=== PATIENT | female | born 1960 | race Caucasian/White ===

== ENCOUNTER 2017-04-26 14:30 | Emergency (ER) | payer OTHER ==
[~2017-04-26] VITALS: Ht 162.6 cm; Wt 80.0 kg
[2017-04-26 14:44] VITALS: BP 162/84; PULSE 106; RESP 20; TEMP 98.3; O2SAT 96
[2017-04-26 14:50] VITALS: BP 162/84; PULSE 104; RESP 20; O2SAT 96
[2017-04-26] MEDS ORDERED: ASPI81CH CHEW (14:56)
[2017-04-26] MEDS ORDERED: CENTCHW4 CHEW (14:56)
--- NOTE | 2017-04-26 15:09 | PD ---
HPI Chief Complaint: Chest Pain Time Seen by Provider: 14:58 Travel History International Travel<30 days: No Contact w/Intl Traveler<30days: No Traveled to known affect area: No History of Present Illness HPI 56-year-old female came to the emergency room with history of sudden onset chest pain that was a tight sensation across her chest. It radiated up to her jaw. Patient was having difficult time breathing because of it. This happened 45 minutes prior to coming in. She was given nitroglycerin spray by paramedics. She says the pain has subsided at this point. Patient had similar kind of feeling. Same thig happened a few years ago and at that time she had to be admitted to [facility]. She had something similar 2 weeks ago as well but didn't come in to be checked out. Patient had a stress test more than 10 years ago which was negative. She is a heavy smoker for past 40 years. No family history of coronary artery disease that she knows of. She took 2 full strength aspirin which she takes every other day anyway. Vital signs are within normal limit. [facility] Past Medical History Narrative Medical List of her past medical, surgical, social and family history was reviewed from the nursing note. Heart Rhythm Problems: No Cardiovascular Problems: Yes High Cholesterol: Yes (DID NOT GET RX FILLED) Congestive Heart Failure: No COPD: Yes (SMOKER) Diabetes: No Diminished Hearing: Yes ([place]) GERD: Yes (POSSIBLY) Genitourinary: No Hiatal Hernia: Yes Hypertension: No Musculoskeletal: Yes (PLEURACY) Neurologic: No Reproductive: No Respiratory: No Immunizations Current: No Myocardial Infarction: No Tetanus Vaccination: Unknown Influenza Vaccination: Yes ?: Not Menopausal: Yes Past Surgical History Abdominal Surgery: Yes (HERNIA REPAIR) Coronary Artery Bypass Graft: No Other Surgery: Yes (HERNIA) Social History Alcohol Use: Yes (OCCASIONALLY ) Tobacco Use: Yes (1PPD) Substance Use: No Allergies-Medications (Allergen,Severity, Reaction): Coded Allergies: No Known Allergies (Verified , 04/26/17) Comments No known drug allergies per Reported Meds & Prescriptions Reported Meds & Active Scripts Active Reported Centrum (Multiple Vitamins W/ Minerals) 1 Chew 1 Tab CHEW DAILY Aspirin 81 Mg Chew 162 Mg CHEW DAILY Narrative Medication List of her home medications reviewed from the nursing note. Review of Systems Except as stated in HPI: all other systems reviewed are Neg Physical Exam Narrative GENERAL: Awake, alert, obese, anxious SKIN: Focused skin assessment warm/dry. HEAD: Atraumatic. Normocephalic. EYES: Pupils equal and round. No scleral icterus. No injection or drainage. ENT: No nasal bleeding or discharge. Mucous membranes pink and moist. NECK: Trachea midline. No JVD. CARDIOVASCULAR: Regular rate and rhythm. No murmur appreciated. RESPIRATORY: No accessory muscle use. Clear to auscultation. Breath sounds equal bilaterally. GASTROINTESTINAL: Abdomen soft, non-tender, nondistended. Hepatic and splenic margins not palpable. MUSCULOSKELETAL: No obvious deformities. No clubbing. No cyanosis. No edema. NEUROLOGICAL: Awake and alert. No obvious cranial nerve deficits. Motor grossly within normal limits. Normal speech. PSYCHIATRIC: Appropriate mood and affect; insight and judgment normal. Data Data Last Documented VS Orders Electrocardiogram (04/26/17 15:25) Basic Metabolic Panel (Bmp) (04/26/17 15:25) Ckmb (Isoenzyme) Profile (04/26/17 15:25) Complete Blood Count With Diff (04/26/17 15:25) Magnesium (Mg) (04/26/17 15:25) Prothrombin Time / Inr (Pt) (04/26/17 15:25) Act Partial Throm Time (Ptt) (04/26/17 15:25) Troponin I (04/26/17 15:25) Chest, Single Ap (04/26/17 15:25) Ecg Monitoring (04/26/17 15:25) Bilateral Bp Monitoring (04/26/17 15:25) Iv Access Insert/Monitor (04/26/17 15:25) Oximetry (04/26/17 15:25) Oxygen Administration (04/26/17 15:25) Sodium Chloride 0.9% Flush (Ns Flush) (04/26/17 15:30) CKMB (04/26/17 15:00) CKMB% (04/26/17 15:00) Labs MDM Medical Decision Making Medical Screen Exam Complete: Yes Emergency Medical Condition: Yes Medical Record Reviewed: Yes Interpretation(s) Twelve-lead EKG was reviewed by me. Normal sinus rhythm, normal axis, nonspecific ST-T wave changes. Heart rate of 97 bpm. Differential Diagnosis ACS, non-STEMI, nonspecific chest pain Narrative Course 4:48 PM awaiting for the chemistry and troponin. Chest x-rays within normal limit. Given her risk factor which includes age, obesity and heavy smoking for many years I would like her to be ruled out and chest pain center. I've expressed this to the patient. 5:29 PM all the blood test results of back and within normal limit. However when I explained to the patient the need to be admitted patient didn't want to stay. She understands the risk of leaving. Patient has capacity to make decisions for herself. Patient will sign AMA. Procedures EKG Prior to Arrival: Yes Diagnosis Primary Impression: Chest pain Qualified Code: R07.9 - Chest pain, unspecified type Disposition: AGAINST MEDICAL ADVICE Condition: Serious Norma Taveras MD Apr 26, 2017 15:09 Mean Platelet Volume 7.9 FL Neutrophils (%) (Auto) 61.7 % Lymphocytes (%) (Auto) 27.9 % Monocytes (%) (Auto) 8.5 % Eosinophils (%) (Auto) 1.3 % Basophils (%) (Auto) 0.6 % Neutrophils # (Auto) 4.2 TH/MM3 Lymphocytes # (Auto) 1.9 TH/MM3 Monocytes # (Auto) 0.6 TH/MM3 Eosinophils # (Auto) 0.1 TH/MM3 Basophils # (Auto) 0.0 TH/MM3 CBC Comment DIFF FINAL Differential Comment Prothrombin Time 10.2 SEC Prothromb Time International 0.9 RATIO Ratio Activated Partial 25.0 SEC Thromboplast Time Sodium Level 140 MEQ/L Potassium Level 3.8 MEQ/L Chloride Level 106 MEQ/L Carbon Dioxide Level 21.7 MEQ/L Anion Gap 12 MEQ/L Blood Urea Nitrogen 11 MG/DL Creatinine 0.74 MG/DL Estimat Glomerular Filtration 81 ML/MIN Rate Random Glucose 84 MG/DL Calcium Level 8.8 MG/DL Magnesium Level 1.9 MG/DL Total Creatine Kinase 179 U/L Creatine Kinase MB 1.6 NG/ML Troponin I LESS THAN 0.02 NG/ML MDM Medical Decision Making Medical Screen Exam Complete: Yes Emergency Medical Condition: Yes Medical Record Reviewed: Yes Interpretation(s) Twelve-lead EKG was reviewed by me. Normal sinus rhythm, normal axis, nonspecific ST-T wave changes. Heart rate of 97 bpm. Differential Diagnosis ACS, non-STEMI, nonspecific chest pain Narrative Course 4:48 PM awaiting for the chemistry and troponin. Chest x-rays within normal limit. Given her risk factor which includes age, obesity and heavy smoking for many years I would like her to be ruled out and chest pain center. I've expressed this to the patient. 5:29 PM all the blood test results of back and within normal limit. However when I explained to the patient the need to be admitted patient didn't want to stay. She understands the risk of leaving. Capacity to make decisions for herself. Patient will sign AMA. Procedures EKG Prior to Arrival: Yes Diagnosis Primary Impression: Chest pain Qualified Code: R07.9 - Chest pain, unspecified type Disposition: 07 AGAINST MEDICAL ADVICE Condition: Serious oNrma Taveras MD Apr 26, 2017 15:09
[2017-04-26] MEDS ORDERED: SODIUM CHLORIDE 0.9% FLUSH 10 ML FLUSH IVF PRN (15:30)
[2017-04-26 15:58] LABS: AUTOMATED NEUTROPHIL # 4.2 TH/MM3 (1.8-7.7); BASOPHIL % 0.6 % (0.0-2.0); EOSINOPHIL # 0.1 TH/MM3 (0-0.4); EOSINOPHIL % 1.3 % (0.0-4.0); HEMATOCRIT 41.5 % (35.0-46.0); HEMO FLAGS DIFF FINAL; LYMPH % 27.9 % (9.0-44.0); LYMPHOCYTE # 1.9 TH/MM3 (1.0-4.8); MEAN CELL VOLUME 95.5 FL (80.0-100.0); MEAN CORPUSCULAR HEMOGLOBIN 31.3 PG (27.0-34.0); MEAN CORPUSCULAR HGB CONC 32.7 % (32.0-36.0); MONO % 8.5 % (0.0-8.0); NEUT % 61.7 % (16.0-70.0); PLATELET COUNT 202 TH/MM3 (150-450); RED BLOOD COUNT 4.35 MIL/MM3 (4.00-5.30); RED CELL DISTRIBUTION WIDTH 13.3 % (11.6-17.2); WHITE BLOOD COUNT 6.7 TH/MM3 (4.0-11.0)
[2017-04-26 16:11] LABS: INTERNATIONAL NORMALIZED RATIO 0.9 RATIO; PROTHROMBIN TIME - PATIENT 10.2 SEC (9.8-11.6)
--- NOTE | 2017-04-26 16:25 | RADRPT ---
EXAM DATE/TIME: 04/26/2017 15:36 [facility] COMPARISON: No previous studies available for comparison. INDICATIONS : Chest pain MEDICAL HISTORY : None. SURGICAL HISTORY : None. ENCOUNTER: Initial ACUITY: 1 day PAIN SCORE: 2/10 LOCATION: Bilateral chest FINDINGS: The heart and mediastinal structures are normal. The pulmonary vascular pattern is also normal. Old healed fractures of the ribs are noted bilaterally. No acute focal pulmonary infiltrate is noted. CONCLUSION: No acute cardiopulmonary disease. Andrew Do MD on April 26, 2017 at 16:21 Board Certified Radiologist. This report was verified electronically.
[2017-04-26 16:55] LABS: ANION GAP 12 MEQ/L (5-15); BICARBONATE 21.7 MEQ/L (21.0-32.0); BLOOD UREA NITROGEN 11 MG/DL (7-18); CHLORIDE 106 MEQ/L (98-107); CREATINE KINASE 179 U/L (26-192); GLOMERULAR FILTRATION RATE 81 ML/MIN (>89); MAGNESIUM 1.9 MG/DL (1.5-2.5); SODIUM (NA) 140 MEQ/L (136-145)
[2017-04-26 16:58] LABS: POTASSIUM 3.8 MEQ/L (3.5-5.1)
[2017-04-26 17:04] VITALS: RESP 20; O2SAT 99
[2017-04-26 17:05] VITALS: BP 148/82; PULSE 92; RESP 18; O2SAT 99
[2017-04-26 17:11] LABS: CKMB 1.6 NG/ML (0.5-3.6)
--- NOTE | 2017-04-26 18:21 | EKG ---
Date Performed: 04/26/2017 Time Performed: 14:49:50 PTAGE: 56 years EKG: Sinus rhythm NORMAL ECG COMPARED TO PRIOR ELECTROCARDIOGRAM, Rate has increased. PREVIOUS TRACING : 03/15/2008 04.02 DOCTOR: Nik Wakefield Interpretating Date/Time 04/26/2017 18:21:07
== END 2017-04-26 18:09 | disposition left against medical advice (07) ==
LOC: NEPC 14:30
DX: R07.9 Chest pain, unspecified (principal)
CPT/HCPCS: 71010; 80048; 82550; 82552; 83735; 84484; 85025; 85610; 85730; 93005; 99285